=== PATIENT | male | born 1985 | race Caucasian/White ===

== ENCOUNTER 2024-01-03 09:24 | Emergency (ER) | payer MEDICAID, OTHER ==
--- NOTE | 2024-01-03 09:35 | ED Physician Documentation ---
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 Bled well initially.. Coworkers drove him directly here.) Where injury occurred: Work Timing - onset: Today (just [employer], directly here from worksite after injury.) Timing - details: Abrupt onset Worsened by: Moving, Palpating Associated symptoms: No: Weakness, Numbness Similar symptoms before: Has not had sx before Review of Systems Skin: reports: Laceration (s) Neurologic: denies: Focal weakness, Numbness PD PAST MEDICAL HISTORY - Past Medical History Past Medical History: No Cardiovascular: None Respiratory: None, COPD Neuro: None Endocrine/Autoimmune: None GI: None : None HEENT: None Psych: None Musculoskeletal: None Other Past Medical History: fabry disease - Past Surgical History Past Surgical History: No - Present Medications Home Medications: Ambulatory Orders Medication Instructions Recorded Confirmed No Known Home Medications 01/03/24 01/03/24 - Allergies Allergies/Adverse Reactions: Allergies Allergy/AdvReac Type Severity Reaction Status Date / Time hydromorphone [From Dilaudid] AdvReac Emesis Verified 01/03/24 09:27 morphine AdvReac Emesis Verified 01/03/24 09:27 - Social History Does the pt smoke?: No Smoking Status: Never smoker Does the pt drink ETOH?: No Does the pt have substance abuse?: No - Immunizations Immunizations are current?: No Immunizations: TDAP current <10years, Other immun not current PD ED PE NORMAL - Vitals Vital signs reviewed: Yes - General General: Alert and oriented X 3, Well developed/nourished, Other (appears in pain due to thumb injury. It is wrapped in gauze and tape from worksite. ) - Derm Derm: Normal color, Warm and dry - Extremities Extremities: Other (nail is avulsed and holding on by a thread of tissue. Nailbed laceration without exposure of the bone. lac extends to sides of nailebed about 2-3 mm.) - Neuro Neuro: No motor deficit (he has good movment without pain at IP joint. ), No sensory deficit Results - Vitals Vitals: Oxygen O2 Source Room air - Rads (name of study) right thumb Relevant Findings:: Prelim report reviewed (tuft fracture. No FB. Not joint involvement. ), EMP independent interpretation of test Procedures - Laceration (location) right thumb nailbed Length in cm: 1.4 Wound type: Stellate Neurovascular status: Sensory intact, Motor intact, Vascular intact Tendon involvement: Tendon intact Anesthesia: Lidocaine 1% Wound preparation: Irrigated copiously NS, Wound explored, To the base, debridement of wound edges (traumatic laceration/avulsion) Skin layer closure: Nylon, Interrupted (used sutures to close and align edges of nailbed tissue where lac extends to both sides. Then tucked cleaned carlo back in nychaial fold and sutured the nail in that location.) PD Medical Decision Making - ED course Complexity details: reviewed results (tuft fracture thumb, ocmmunicated. without FB.No joint involvement. 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 Nail pulled up and mostly off. Lac of nailbed. ), d/w patient Departure - Departure Disposition: 01 Home, Self Care Clinical Impression: Nailbed laceration, finger, Open fracture of tuft of distal phalanx of finger Condition: Stable Record reviewed to determine appropriate education?: Yes Instructions: ED Fx Finger Closed, ED Laceration Hand Comments: Keep the area clean and dry for the most part. It is okay to wash and shower briefly. Apply ointment to the area couple of times a day to keep it softer. The nail is sutured in place to act as a splint or mold to best allow the nailbed to heal in a flat position to make way for the next nail to grow out. The sutures for the nail as well as the skin can get removed in about 10 days. At that point the underside of the nailbed should be healed and enough to treat as just open wound. Tylenol and/or ibuprofen regularly for the next several days to week to help w ith pain. There is a fracture of the tuft part of the bone on the finger. This will heal and slowly as bone healing is slower than the skin healing. Will be about 4 weeks of tenderness to palpation and use in that area but it should solidify back into the normal shape without intervention. It is good to ensure this is all healing well. I would recommend follow-up to evaluate the wound if it has any signs of infection otherwise when the sutures are removed. Use the finger splint to protect it when you are doing activity. Obviously try to be nice to the wound and sutures especially the first several days. Forms: PCP List Discharge Date/Time: 01/03/24 11:35
[2024-01-03] MEDS: LIDOCAINE 1%-EPI 1:100000 20 ML MDV SUBQ STA (09:50)
[2024-01-03] MEDS: KETOROLAC 30 MG/ML VIAL IM STA (10:11)
[2024-01-03] MEDS: HYDROmorphone 1 MG/ML CARPUJECT IM STA (10:11)
--- NOTE | 2024-01-03 10:15 | XRAY Report ---
PROCEDURE: Finger(s) RT INDICATIONS: RIGHT THUMB INJURY WEIGHT LOSS CONSULTANT TECHNIQUE: PA hand, 2 views of the thumb acquired. COMPARISON: None. FINDINGS: Bones: Comminuted minimally displaced fracture of the tuft of the 1st distal phalanx. The remaining visualized osseous structures are intact. Soft tissues: Soft tissue edema is seen in the thumb. A radiodense ring is seen around the base of t he thumb. No radiopaque foreign body. IMPRESSION: Comminuted minimally displaced fracture of the tuft of the 1st distal phalanx. Reviewed by: Abel Persaud MD on 01/03/2024 10:14 AM PDT Approved by: Abel Persaud MD on 01/03/2024 10:14 AM PDT Station ID: [id number]
[2024-01-03 11:04] VITALS: BP 128/87; O2SAT 99
[2024-01-03] MEDS: NALBUPHINE 10 MG/ML AMP IM STA (11:05)
== END 2024-01-03 11:35 | disposition home or self-care (01) ==
LOC: ED 09:24
DX: S62.521B Displaced fracture of distal phalanx of right thumb, initial encounter for open fracture (principal); W23.1XXA Caught, crushed, jammed, or pinched between stationary objects, initial encounter; J44.9 Chronic obstructive pulmonary disease, unspecified; E75.21 Fabry (-Anderson) disease
CPT/HCPCS: 12001; 73140; 96372; 99283; J2300